=== PATIENT | female | born 1995 | race Caucasian/White ===

== ENCOUNTER 2017-08-05 16:57 | Emergency (ER) | payer MEDICAID ==
[~2017-08-05] VITALS: Ht 165.1 cm; Wt 63.0 kg
[~2017-08-05 16:57] MED LIST: BIRTH CONTROL TD; CLIN300C8 PO; DOCU-131 PO; FERR325T18 PO; IBUP-1222 PO; OXYC-302 PO
[2017-08-05] MEDS ORDERED: ONDANSETRON ODT 4 MG ONE ×2 (17:13→19:55)
[2017-08-05] MEDS ORDERED: ONDANSETRON ODT 4 MG PO ONE (17:30)
[2017-08-05 17:34] LABS: BASOPHILS # (AUTO) 0.04 x10^3/uL (0-0.1); BASOPHILS % (AUTO) 0 % (0-1); EOSINOPHILS # (AUTO) 0.01 x10^3/uL (0-0.4); EOSINOPHILS % (AUTO) 0 % (1-7); LYMPHOCYTES # (AUTO) 1.86 x10^3/uL (1-3.4); LYMPHOCYTES % (AUTO) 14 % (22-44); MD NO; MEAN CORPUSCULAR HEMOGLOBIN 30.3 pg (27.0-34.8); MEAN CORPUSCULAR HGB CONC 34.1 g/dL (32.4-35.8); MEAN PLATELET VOLUME 9.5 fL (7.4-10.4); MONOCYTES # (AUTO) 1.13 x10^3/uL (0.2-0.8); MONOCYTES % (AUTO) 9 % (2-9); NEUTROPHILS # (AUTO) 9.97 x10^3/uL (1.8-6.8); NEUTROPHILS % (AUTO) 77 % (42-75); PLATELET COUNT 229 x10^3/uL (130-400); RED BLOOD COUNT 4.79 x10^6/uL (3.82-5.3); RED CELL DISTRIBUTION WIDTH 14.6 % (9.6-15.2)
[2017-08-05] MEDS ORDERED: FAMOTIDINE 20 MG/2 ML ONE (17:41)
[2017-08-05 17:43] LABS: ALANINE AMINOTRANSFERASE 16 U/L (12-78); ALBUMIN 3.8 g/dL (3.4-5.0); ANION GAP 11 mmol/L (5-15); CALCIUM 9.3 mg/dL (8.5-10.1); CHLORIDE 108 mmol/L (98-107); CREATININE 0.91 mg/dL (0.55-1.02)
[2017-08-05 17:48] LABS: ALKALINE PHOSPHATASE 70 U/L (45-117); BILIRUBIN,TOTAL 0.3 mg/dL (0.2-1.0); TOTAL PROTEIN 8.3 g/dL (6.4-8.2)
[2017-08-05] MEDS ORDERED: SODIUM CHLORIDE 0.9% 1,000ML IVBOLUS ONE ×2 (18:00→20:00)
[2017-08-05] MEDS ORDERED: FAMOTIDINE 20 MG/2 ML IVP ONE (18:00)
[2017-08-05 18:11] LABS: CULTURE INDICATED? YES; MICROSCOPIC INDICATED
[2017-08-05] MEDS ORDERED: METOCLOPRAMIDE 5 MG/ML, 2ML ONE (18:27)
[2017-08-05] MEDS ORDERED: METOCLOPRAMIDE 5 MG/ML, 2ML IVPush ONE (18:30)
[2017-08-05] MEDS ORDERED: MAALOX/HYOSCYAMINE/LIDOCAINE 45 ML BTL ONE (19:46)
[2017-08-05] MEDS ORDERED: MAALOX/HYOSCYAMINE/LIDOCAINE 45 ML BTL PO ONE (20:00)
[2017-08-05 21:06] VITALS: BP 104/52
== END 2017-08-05 21:08 | disposition home or self-care (01) ==
LOC: ED 20:24
DX: K52.9 Noninfective gastroenteritis and colitis, unspecified (principal)
CPT/HCPCS: 36415; 80053; 81001; 83690; 84703; 85025; 87086; 89055; 96361; 96374; 96375; 99285; J2765; J7030; Q0162; S0028

== ENCOUNTER 2017-12-08 10:31 | Emergency (ER) | payer MEDICAID ==
[~2017-12-08] VITALS: Ht 165.1 cm; Wt 63.8 kg
[2017-12-08] MEDS ORDERED: DEXAMETHASONE 4 MG TABLET ONE (10:57)
[2017-12-08] MEDS ORDERED: PLEASE ENTER HEIGHT AND WEIGHT MC SCH (11:00)
[2017-12-08] MEDS ORDERED: DEXAMETHASONE 4 MG TABLET PO ONE (11:00)
[2017-12-08 11:49] VITALS: BP 116/62
== END 2017-12-08 11:51 | disposition home or self-care (01) ==
LOC: ED 10:57
DX: J02.0 Streptococcal pharyngitis (principal)
CPT/HCPCS: 87880; 99283

== ENCOUNTER 2017-12-18 14:21 | Emergency (ER) | payer MEDICAID ==
[~2017-12-18] VITALS: Ht 165.1 cm; Wt 64.8 kg
[2017-12-18 14:25] VITALS: BP 122/76
[2017-12-18 15:42] LABS: CULTURE INDICATED? YES; MICROSCOPIC INDICATED
== END 2017-12-18 16:28 | disposition home or self-care (01) ==
LOC: ED 14:30
DX: N30.00 Acute cystitis without hematuria (principal)
CPT/HCPCS: 81001; 87086; 99284

== ENCOUNTER 2018-11-11 17:00 | Inpatient (IN) | payer MEDICAID ==
[~2018-11-11] VITALS: Ht 165.1 cm; Wt 64.3 kg
--- NOTE | 2018-11-11 17:23 | NUR ---
Link RN: Gilmer MITCHELL after suicide attempt. Pt had posted a video on Facebook stating that she was planning on committing suicide. Pt was found locked in her car w/ her windows rolled up by retired [employer] officer turned [employer] at [facility], pt had "multiple open containers of ammonia & bleach which appeared to have both chemicals mixed in them" per GUYD's L2K. Pt states that she and her ex-boyfriend, Sai, got into a domestic dispute for which she was arrested, she no longer has a home since they lived together and she fears she is going to have custody of her son taken away since the dispute, which is the cause of her wanting to commit suicide at this time. Pt also states that she had a positive test 2 weeks ago and that she does not have a family support system.
--- NOTE | 2018-11-11 17:23 | NUR ---
Link RN: Gilmer MITCHELL after suicide attempt. Pt had posted a video on Facebook today stating that she was planning to commit suicide. Pt was found locked in her car w/ her windows rolled up by a retired [employer] officer turned Quality Assurance Assistant at [facility], pt had "multiple open containers of ammonia mixed with bleach" per [employer]'s [employer]. Pt states that she and her now ex-boyfriend, Sai, got into a domestic dispute for which she was arrested on Wednesday, that she no longer has a home since they lived together and she fears that she will have custody of her son taken away since the dispute, she does not have a family support systemt and she had a postive test 2 weeks ago, all of this culminating in her decision to take her life. Report to primary RN Vanesa, all pt's belonging secured in locker by rolando Meza.
--- NOTE | 2018-11-11 17:44 | NUR ---
REPORT FROM DAV TORIBIO. SITTER AT DOORWAY, ROOM SECURED. PT AWARE OF POC, NEED UA STILL.
--- NOTE | 2018-11-11 18:26 | NUR ---
ERP IN TO SEE PT. PT PLACED ON HEART MONITOR, BP CUFF, PULSE OX. WATER PROVIDED-PT STILL UNABLE TO PROVIDE UA. SITTER AT DOORWAY.
--- NOTE | 2018-11-11 18:35 | NUR ---
PT ASKED ABOUT LOCATION OF SON. PT STATES SHE DROPPED HER 2 YEAR OLD SON OFF AT [employer] PRIOR TO [facility]. PT STATES F[employer]ER IS UNAWARE SHE WILL NOT BE PICKING SON UP. PT DOES NOT HAVE PHONE NUMBER FOR [employer] BUT PROVIDES NAME AND STATES SHE MESSAGES THROUGH FACEBOOK. FENDER FINISHER'S NAME LETY ARAVIND, SON'S NAME IS SILVIA. LIS SW INFORMED OF THIS INFO, TALKING WITH PT NOW.
[2018-11-11 18:39] LABS: BASOPHILS # (AUTO) 0.06 x10^3/uL (0-0.1); BASOPHILS % (AUTO) 1 % (0-1); EOSINOPHILS % (AUTO) 1 % (1-7); LYMPHOCYTES # (AUTO) 2.06 x10^3/uL (1-3.4); LYMPHOCYTES % (AUTO) 20 % (22-44); MD NO; MEAN CORPUSCULAR HEMOGLOBIN 31.6 pg (27.0-34.8); MEAN CORPUSCULAR HGB CONC 33.8 g/dL (32.4-35.8); MEAN CORPUSCULAR VOLUME 93.6 fL (80-100); MEAN PLATELET VOLUME 8.3 fL (7.4-10.4); MONOCYTES # (AUTO) 1.01 x10^3/uL (0.2-0.8); MONOCYTES % (AUTO) 10 % (2-9); NEUTROPHILS # (AUTO) 7.16 x10^3/uL (1.8-6.8); NEUTROPHILS % (AUTO) 69 % (42-75); PLATELET COUNT 283 x10^3/uL (130-400); RED BLOOD COUNT 4.26 x10^6/uL (3.82-5.3); RED CELL DISTRIBUTION WIDTH 13.7 % (9.6-15.2)
[2018-11-11 18:51] LABS: ALANINE AMINOTRANSFERASE 32 U/L (12-78); ALBUMIN 3.6 g/dL (3.4-5.0); ANION GAP 8 mmol/L (5-15); CALCIUM 8.5 mg/dL (8.5-10.1); CHLORIDE 110 mmol/L (98-107); CREATININE 0.77 mg/dL (0.55-1.02)
[2018-11-11 18:53] LABS: SALICYLATE LEVEL < 1.7 mg/dL (2.8-20.0)
[2018-11-11 18:55] LABS: ALKALINE PHOSPHATASE 58 U/L (45-117); BILIRUBIN,TOTAL 0.6 mg/dL (0.2-1.0); TOTAL PROTEIN 7.6 g/dL (6.4-8.2)
--- NOTE | 2018-11-11 19:01 | NUR ---
REPORT TO JAKE TORIBIO, TRANSFER OF CARE AT THIS TIME
[2018-11-11] MEDS: SODIUM CHLORIDE 0.9% 1,000 ML IV SCH (21:05)
[2018-11-11 21:25] LABS: AMPHETAMINE SCREEN, URINE Negative (Negative); BARBITURATE SCREEN, URINE Negative (Negative); BENZODIAZEPINE SCREEN, URINE Negative (Negative); CANNABINOID SCREEN, URINE Positive (Negative); COCAINE SCREEN, URINE Negative (Negative); METHADONE SCREEN, URINE Negative (Negative); OPIATE SCREEN, URINE Negative (Negative)
--- NOTE | 2018-11-11 21:35 | NUR ---
pt orders checked and pt had regular diet ordered. pt given water and ham sandwich and pt tolerated eating well.
--- NOTE | 2018-11-11 21:57 | NUR ---
Unable to admit pt to 3E due to insurance.
--- NOTE | 2018-11-11 22:05 | NUR ---
report called to rn for room 348.
[2018-11-12 01:06] VITALS: BP 123/80
[2018-11-12 01:55] LABS: CULTURE INDICATED? YES; MICROSCOPIC INDICATED
[2018-11-12] MEDS: SODIUM CHLORIDE 0.9% 1,000 ML IV SCH ×2 (04:46→14:37)
[2018-11-12 05:45] LABS: ALANINE AMINOTRANSFERASE 35 U/L (12-78); ALBUMIN 3.3 g/dL (3.4-5.0); ANION GAP 7 mmol/L (5-15); CALCIUM 8.6 mg/dL (8.5-10.1); CHLORIDE 110 mmol/L (98-107)
[2018-11-12 05:48] LABS: ALKALINE PHOSPHATASE 53 U/L (45-117); BILIRUBIN,TOTAL 0.5 mg/dL (0.2-1.0); CREATININE 0.73 mg/dL (0.55-1.02); TOTAL PROTEIN 6.9 g/dL (6.4-8.2)
[2018-11-12 05:59] LABS: BASOPHILS # (AUTO) 0.04 x10^3/uL (0-0.1); BASOPHILS % (AUTO) 1 % (0-1); EOSINOPHILS # (AUTO) 0.11 x10^3/uL (0-0.4); EOSINOPHILS % (AUTO) 2 % (1-7); LYMPHOCYTES # (AUTO) 2.17 x10^3/uL (1-3.4); LYMPHOCYTES % (AUTO) 30 % (22-44); MD NO; MEAN CORPUSCULAR HEMOGLOBIN 31.9 pg (27.0-34.8); MEAN CORPUSCULAR HGB CONC 33.6 g/dL (32.4-35.8); MEAN PLATELET VOLUME 9.1 fL (7.4-10.4); MONOCYTES # (AUTO) 0.89 x10^3/uL (0.2-0.8); MONOCYTES % (AUTO) 12 % (2-9); NEUTROPHILS # (AUTO) 4.11 x10^3/uL (1.8-6.8); NEUTROPHILS % (AUTO) 56 % (42-75); PLATELET COUNT 242 x10^3/uL (130-400); RED CELL DISTRIBUTION WIDTH 13.9 % (9.6-15.2)
[2018-11-12 07:50] VITALS: BP 128/79
[2018-11-12] MEDS ORDERED: CEFD300C37 PO ×2 (10:33)
[2018-11-12] MEDS ORDERED: POTASSIUM CHLORIDE 20 MEQ TAB.ER.PRT PO ONE (11:00)
[2018-11-12 13:30] VITALS: BP 115/75
[2018-11-12 20:47] VITALS: BP 112/75
[2018-11-13] MEDS: SODIUM CHLORIDE 0.9% 1,000 ML IV SCH (00:42)
[2018-11-13 00:46] VITALS: BP 107/69
== END 2018-11-13 12:46 | DRG 918 ==
LOC: ED 20:18 → EDIP 20:54 → 3N 22:15
PROVIDERS: ADMIT Family Medicine; ATTEND Family Medicine
DX: T54.3X2A Toxic effect of corrosive alkalis and alkali-like substances, intentional self-harm, initial encounter (principal); F33.2 Major depressive disorder, recurrent severe without psychotic features; N39.0 Urinary tract infection, site not specified; R45.851 Suicidal ideations; F17.200 Nicotine dependence, unspecified, uncomplicated; E87.6 Hypokalemia; K59.00 Constipation, unspecified; E86.0 Dehydration; F41.9 Anxiety disorder, unspecified; F12.10 Cannabis abuse, uncomplicated; Z91.5 Personal history of self-harm; Z72.89 Other problems related to lifestyle; Y92.89 Other specified places as the place of occurrence of the external cause; Z71.51 Drug abuse counseling and surveillance of drug abuser; Z79.899 Other long term (current) drug therapy; Z56.0 Unemployment, unspecified
CPT/HCPCS: 36415; 71045; 80053; 80307; 81001; 84702; 85025; 87040; 87086; 99285; G0378; J7030

== ENCOUNTER 2019-01-09 15:17 | Emergency (ER) | payer SELFPAY ==
[~2019-01-09] VITALS: Ht 165.1 cm; Wt 65.2 kg
[~2019-01-09 15:17] MED LIST changes: +CEFD300C37 PO
--- NOTE | 2019-01-09 15:53 | NUR ---
pt to ed for sternum/epigastric pain starting last noc. pt states she ate out a lot yesterday and thinks it may be heartburn. pt reports pain is worse with movement, deep breathing and position changes and better with rest. pt connected to all monitors. vss. no needs expressed. call light within reach. awaiting edmd assessment.
[2019-01-09 15:59] LABS: MEAN CORPUSCULAR HEMOGLOBIN 31.2 pg (27.0-34.8); MEAN CORPUSCULAR HGB CONC 33.8 g/dL (32.4-35.8); MEAN CORPUSCULAR VOLUME 92.6 fL (80-100); MEAN PLATELET VOLUME 8.6 fL (7.4-10.4); PLATELET COUNT 184 x10^3/uL (130-400); RED CELL DISTRIBUTION WIDTH 13.8 % (9.6-15.2)
[2019-01-09 16:10] LABS: ALANINE AMINOTRANSFERASE 19 U/L (12-78); ALBUMIN 4.3 g/dL (3.4-5.0); ANION GAP 8 mmol/L (5-15); CALCIUM 8.8 mg/dL (8.5-10.1); CHLORIDE 108 mmol/L (98-107); CREATININE 0.86 mg/dL (0.55-1.02)
[2019-01-09 16:14] LABS: ALKALINE PHOSPHATASE 78 U/L (45-117); BILIRUBIN,TOTAL 0.3 mg/dL (0.2-1.0); TOTAL PROTEIN 8.5 g/dL (6.4-8.2); TROPONIN I < 0.015 ng/mL (0.000-0.045)
[2019-01-09 16:19] LABS: MD YES
[2019-01-09 16:22] LABS: ANISOCYTOSIS 1+; EOS#(MANUAL) 0.11 x10^3/uL (0.0-0.4); EOS% (MANUAL) 2 % (1-7); LYMPH#(MANUAL) 1.08 x10^3/uL (1-3.4); LYMPHS% (MANUAL) 20 % (22-44); MICROCYTOSIS 1+; MONOS#(MANUAL) 0.27 x10^3/uL (0.3-2.7); MONOS% (MANUAL) 5 % (2-9); SEG#(MANUAL) 3.94 x10^3/uL (1.8-6.8); SEGS% (MANUAL) 73 % (42-75)
[2019-01-09 16:23] LABS: <PLATELET ESTIMATE> ADEQUATE; <PLT MORPHOLOGY> NORMAL PLT MORPH; OVALOCYTES 1+
--- NOTE | 2019-01-09 16:29 | NUR ---
pt's hr intermittently variable between 70s and 150s. pt reports pain with increased hr. attempted ekg, pt's hr normal during ekg.
--- NOTE | 2019-01-09 17:35 | NUR ---
PT RESTING IN ROOM. VSS. IV ESTABLISHED. NO NEEDS EXPRESSED. CALL LIGHT WITHIN REACH. AWAITING CT.
--- NOTE | 2019-01-09 18:39 | NUR ---
TASK RN - PT TO CT.
[2019-01-09] MEDS ORDERED: OMNIPAQUE 350 MG/ML, 100ML BOTTLE ONE (18:55)
[2019-01-09 19:23] VITALS: BP 106/65
== END 2019-01-09 19:43 | disposition home or self-care (01) ==
LOC: ED 19:37
DX: M94.0 Chondrocostal junction syndrome [Tietze] (principal); R07.89 Other chest pain
CPT/HCPCS: 36415; 71046; 71275; 80053; 84484; 85025; 85379; 93005; 99284; Q9967

== ENCOUNTER 2020-11-07 06:00 | Emergency (ER) | payer MEDICAID ==
[~2020-11-07] VITALS: Ht 167.6 cm; Wt 76.4 kg
[~2020-11-07 06:00] MED LIST changes: -CLIN300C8 PO; +CLIN300C9 PO; -OXYC-302 PO; +OXYC1TAB12 PO
[2020-11-07 06:02] VITALS: BP 139/102
== END 2020-11-07 07:35 | disposition home or self-care (01) ==
LOC: ED 07:15
DX: K02.9 Dental caries, unspecified (principal)
CPT/HCPCS: 99283